=== PATIENT | male | born 1945 | race Caucasian/White ===

== ENCOUNTER 2016-06-21 16:57 | Emergency (ER) | payer MEDICARE ==
[2016-06-21 17:43] LABS: HEMOGLOBIN 12.7 gm/dl (14.0-17.5); RED BLOOD COUNT 3.98 M/UL (4.20-5.50); WHITE BLOOD COUNT 10.4 K/UL (4.5-11.0)
== END 2016-06-22 01:55 | disposition home or self-care (01) ==
LOC: ER1 16:57
PROVIDERS: Emergency Medicine
DX: S39.012A Strain of muscle, fascia and tendon of lower back, initial encounter (principal); S29.012A Strain of muscle and tendon of back wall of thorax, initial encounter; S60.811A Abrasion of right wrist, initial encounter; I12.9 Hypertensive chronic kidney disease with stage 1 through stage 4 chronic kidney disease, or unspecified chronic kidney disease; E11.22 Type 2 diabetes mellitus with diabetic chronic kidney disease; N18.9 Chronic kidney disease, unspecified; W11.XXXA Fall on and from ladder, initial encounter; Y92.009 Unspecified place in unspecified non-institutional (private) residence as the place of occurrence of the external cause; Z23 Encounter for immunization
CPT/HCPCS: 36415; 70450; 71260; 72100; 72125; 72128; 80053; 81001; 85025; 90471; 90714; 93005; 96374; 96375; 96376; 99284; J2270; J2405; J7030; J7050; Q9962

== ENCOUNTER 2020-06-06 05:43 | Emergency (ER) | payer BC, MEDICARE ==
[~2020-06-06 05:43] MED LIST: CEFUROXIME500 MG PO; TESSALON PERLE100 MG PO; VENTOLIN HFA 66.7 GM INH; ZITHROMAX250 MG PO
[2020-06-06] MEDS ORDERED: CYCLOBENZAPRINE5 MG PO (08:28)
[2020-06-06] MEDS ORDERED: HYDROCODON-ACE1 EAC4 PO (15:17)
== END 2020-06-06 10:00 | disposition home or self-care (01) ==
LOC: ER1 05:43
DX: M54.42 Lumbago with sciatica, left side (principal); M06.9 Rheumatoid arthritis, unspecified; F17.210 Nicotine dependence, cigarettes, uncomplicated; Z88.5 Allergy status to narcotic agent
CPT/HCPCS: 72131; 96374; 99283; J1170

== ENCOUNTER 2020-06-06 13:53 | Emergency (ER) | payer BC, MEDICARE ==
[~2020-06-06 13:53] MED LIST changes: +CYCLOBENZAPRINE5 MG PO
[2020-06-06] MEDS ORDERED: HYDROCODON-ACE1 EAC4 PO (15:17)
== END 2020-06-06 15:45 | disposition home or self-care (01) ==
LOC: ER1 13:53
DX: M54.16 Radiculopathy, lumbar region (principal); M06.9 Rheumatoid arthritis, unspecified; Z88.5 Allergy status to narcotic agent
CPT/HCPCS: 99283

== ENCOUNTER 2020-06-23 05:52 | Emergency (ER) | payer BC, MEDICARE ==
[~2020-06-23 05:52] MED LIST changes: +HYDROCODON-ACE1 EAC4 PO
[2020-06-23 08:16] LABS: HEMOGLOBIN 14.3 gm/dl (14.0-17.5); RED BLOOD COUNT 4.38 M/UL (4.20-5.50); WHITE BLOOD COUNT 11.9 K/UL (4.5-11.0)
== END 2020-06-23 10:14 | disposition home or self-care (01) ==
LOC: ER1 05:52
PROVIDERS: Student in an Organized Health Care Education/Training Program
DX: S22.32XA Fracture of one rib, left side, initial encounter for closed fracture (principal); E11.9 Type 2 diabetes mellitus without complications; I10 Essential (primary) hypertension; Z88.5 Allergy status to narcotic agent; W19.XXXA Unspecified fall, initial encounter; Y92.009 Unspecified place in unspecified non-institutional (private) residence as the place of occurrence of the external cause
CPT/HCPCS: 70450; 71111; 71250; 72100; 72125; 72131; 73502; 80053; 81001; 85025; 93005; 99285

== ENCOUNTER → 2020-06-30 | Outpatient (CLI) | payer MEDICARE | LOC: EXRD 10:41 | DX: S22.32XA Fracture of one rib, left side, initial encounter for closed fracture (principal) | CPT/HCPCS: 71046 ==

== ENCOUNTER → 2021-06-07 | Outpatient (CLI) | payer MEDICARE | LOC: KOH-I 13:23 | DX: M25.512 Pain in left shoulder (principal); M25.511 Pain in right shoulder; M54.2 Cervicalgia; M47.812 Spondylosis without myelopathy or radiculopathy, cervical region; M19.012 Primary osteoarthritis, left shoulder; M19.011 Primary osteoarthritis, right shoulder | CPT/HCPCS: 72040; 73030 ==

== ENCOUNTER → 2021-07-16 | Outpatient (CLI) | payer MEDICARE ==
[~2021-07-16] MED LIST changes: +ADULT LOW DOSE81 MG PO; +AMLODIPINE BESYL5 MG PO; +AMOX TR-K CLV1 EAC4 PO; +ATORVASTATIN CA20 MG PO; +BENZONATATE100 MG PO; +COSOPT OPTH SOL10 ML EYEBOTH; +DEPAKOTE 250 M250 MG PO; +DICLOFENAC SODI25 MG PO; +DOXYCYCLINE HY100 M2 PO; +FLONASE 0.05% N16 GM; +FLUOXETINE HCL40 MG PO; +GABAPENTIN300 MG PO; +HUMIBID LA TAB600 MG PO; +HYDRALAZINE HCL25 MG PO; +METFORMIN HCL1000 MG PO; +PLAQUENIL 200200 MG PO; +TIZANIDINE HCL4 MG PO; +TYLENOL325 MG PO; +ULTRAM50 MG PO; +VITAMIN B-121000 MC3 PO; +VITAMIN C100 MG PO
== END ==
LOC: KOH-I 15:19
DX: G45.3 Amaurosis fugax (principal)
CPT/HCPCS: 93880

== ENCOUNTER → 2021-08-05 | Outpatient (CLI) | payer MEDICARE | LOC: CT 13:28 | DX: R55 Syncope and collapse (principal); I65.21 Occlusion and stenosis of right carotid artery | CPT/HCPCS: 36415; 70498; 82565; 84520; Q9965 ==

== ENCOUNTER 2021-10-17 11:45 | Emergency (ER) | payer MEDICARE ==
[2021-10-17 12:44] LABS: HEMOGLOBIN 11.2 gm/dl (14.0-17.5); RED BLOOD COUNT 3.67 M/UL (4.20-5.50); WHITE BLOOD COUNT 9.3 K/UL (4.5-11.0)
[2021-10-17 13:02] LABS: BUN/CREATININE RATIO 22 (0-10)
== END 2021-10-17 17:15 | disposition home or self-care (01) ==
LOC: ER1 11:45
PROVIDERS: Emergency Medicine
DX: G93.40 Encephalopathy, unspecified (principal); E11.9 Type 2 diabetes mellitus without complications; I10 Essential (primary) hypertension; Z86.73 Personal history of transient ischemic attack (TIA), and cerebral infarction without residual deficits; Z85.828 Personal history of other malignant neoplasm of skin; Z20.822 Contact with and (suspected) exposure to COVID-19
CPT/HCPCS: 70450; 71045; 80053; 81001; 82140; 82550; 82553; 83605; 83880; 84484; 85025; 87040; 87086; 93005; 99285; U0002